=== PATIENT | female | born 1985 | race Asian ===

== ENCOUNTER 2023-09-05 07:54 | Inpatient (IN) ==
[2023-09-05] MEDS ORDERED: LIDOCAINE 1% LOCAL 20 ML VIAL INFIL PRN (10:27)
[2023-09-05] MEDS: SERTRALINE HCL 50 MG TABLET PO SCH (10:31)
--- NOTE | 2023-09-05 10:42 | History & Physical Report ---
Date of Service September 05, 2023 Assessment & Plan (1) Female infertility: Present on Admission?: No (2) Encounter for induction of labor: Present on Admission?: Yes (3) AMA (advanced maternal age) multigravida 35+: Present on Admission?: Yes Plan Admit to L and D Regular diet x 2 then NPO/IV Fluids labs Cytotec 25 mcg x 4 doses then consider Pitocin, AROM to augment labor pain meds including epidural eventually as the pt desires Admission and Anticipated Discharge Date Admission Date: September 05, 2023 History of Present Illness Chief Complaint: Induction of labor for IVF , AMA Primary Care Provider: Delia Dimas pt 40 yr old IUP at 39 weeks 2 days came in for IOL . IVF . Denies regular uterine contractions, vaginal bleeding, leaking of fluid per vagina etc, Reports good movement. Allergies Allergy/AdvReac Type Severity Reaction Status Date / Time amoxicillin [From Augmentin] Allergy Nausea Verified 09/05/23 08:39 clavulanic acid Allergy Nausea Verified 09/05/23 08:39 [From Augmentin] Home Medications Medication Instructions Recorded Confirmed Type Aspir-81 81 mg PO 1XD 09/05/23 09/05/23 History 1 tab PO 1XD 09/05/23 09/05/23 History Zoloft 75 mg PO 1XD 09/05/23 09/05/23 History Past Med/Surg History Problem List (Updated 09/05/23 @ 10:40 by Ashley Brown MD) AMA (advanced maternal age) multigravida 35+ Encounter for induction of labor Female infertility (Chronic) Depression (Chronic) Anxiety (Chronic) Surgical History History of adenoidectomy S/P lumpectomy of breast Benign Family History Denies family history of Ovarian cancer Breast cancer Colorectal cancer Social History Smoking Status: Never smoker Second Hand Exposure: No; Do You Dip or Chew Tobacco: No; Tobacco Cessation Education Requested by Patient: No Hx Alcohol Use: No Hx Substance Use: No Preferred Language: Maltese Museum Preparator Required: No Beliefs That Will Affect Care: None marital status: Current Living Situation: Spouse Current Living Situation Comment: [facility] Other Information That Helps Us Care for You: No Feels Safe at Home: Yes Safety Concerns: Feels Safe At This Time, Afraid for Self, Afraid for Child/Children and Afraid for Others in Home Assistive Devices: None Review of Systems Review of Systems: All systems reviewed & are unremarkable except as noted in HPI & below Constitutional: as per Subjective / HPI Ear, Nose, Mouth, Throat: as per Subjective / HPI Respiratory: as per Subjective / HPI Cardiovascular: as per Subjective / HPI Physical Exam Constitutional: WD/WN, vitals as above Eyes: PERRL, conjunctivae normal, anicteric sclerae Respiratory: normal respiratory effort, lungs clear to auscultation Cardiovascular: RRR, no murmur, no edema Gastrointestinal (Abdomen): normal bowel sounds, soft, nontender, no hepatosplenomegaly Skin: no rashes, warm and dry Genitourinary: no vaginal lesions, no adnexal mass Manual OB Exam: + cervical dilation (1 cm), + cervical effacement 80% and + station 0 OB Exam Monitor Tracing: + external FHT monitor used, + category I and + normal FHT variability Results & Data Results & Data Vital Signs (Past 12 Hours) Vital Signs Temp Pulse Resp BP 09/05/23 10:26 69 111/70 09/05/23 08:12 37.1 C 94 H 16 120/73 09/05/23 08:02 94 H 120/73 Medications Administered cytotec 25 mcg PO Code Status & VTE Plan VTE Prophylaxis Plan VTE Prophylaxis will be ordered: No
[2023-09-05] MEDS ORDERED: Nursing to Pharmacy Communication SCH (10:45)
[2023-09-05] MEDS: miSOPROStoL 25 MCG TAB PO SCH (11:06)
[2023-09-05 11:18] LABS: Hematocrit (blood only) 40.7 % (37.0-47.0); Hemoglobin 13.6 g/dl (12.0-16.0); Mean Corpuscular Hemoglobin 31.3 pg (25.0-34.0); Mean Corpuscular Hgb Conc 33.4 g/dL (32.0-36.0); Mean Corpuscular Volume 93.8 fL (80.0-100.0); Mean Platelet Volume 9.8 fL (9.4-12.4); Platelet Count 200 K/uL (130-400); RDW Coefficient of Variation 13.4 % (11.5-14.5); RDW Standard Deviation 45.9 fL (36.4-46.3); Red Blood Count 4.34 M/uL (4.20-5.40); White Blood Count 8.39 K/ul (4.8-10.8)
[2023-09-05 13:59] LABS: HIV 4th Gen(HIV 1,2 AB+p24 Ag Negative (Negative)
[2023-09-05 14:06] LABS: HepB Surface Ag with confirm Negative (Negative)
[2023-09-05 14:14] LABS: HepC Ab Rflx HepCQuant RNA Negative (Negative)
[2023-09-05] MEDS: LACTATED RINGER'S 1,000 ML IV PRN (15:02)
[2023-09-05] MEDS: BUPIVACAINE 0.25% PF 30 ML VIAL ONE (15:47)
[2023-09-05] MEDS: LIDOCAINE 2%/EPINEPHRINE 1:200,000 20 ML PF ONE (15:47)
[2023-09-05] MEDS: fentANYL 2 MCG/ML BUPIVacaine 0.125%-NSS 100ML BAG ONE (15:52)
[2023-09-05] MEDS: ePHEDrine sulfate 50 MG/ML AMP ONE (15:57)
[2023-09-05] MEDS: fentaNYL citrate PF 100 MCG/2 ML VIAL ONE (15:57)
[2023-09-05] MEDS: SODIUM CHLORIDE 0.9% PF INJ 10 ML VIAL ONE (15:58)
--- NOTE | 2023-09-05 16:04 | Anesthesiology Consultation ---
Date of Service September 05, 2023 Assessment & Plan Chart Review Chart Review: Acceptable Risk for Labor Epidural Consults Requested none History Height/Weight Height: 5 ft 6 in Weight: 82.1 kg Allergies Allergy/AdvReac Type Severity Reaction Status Date / Time amoxicillin [From Augmentin] Allergy Nausea Verified 09/05/23 08:39 clavulanic acid Allergy Nausea Verified 09/05/23 08:39 [From Augmentin] Medications Home Medications Medication Instructions Recorded Confirmed Last Taken Aspir-81 81 mg PO 1XD 09/05/23 09/05/23 09/05/23 0700 1 tab PO 1XD 09/05/23 09/05/23 09/05/23 0700 Zoloft 75 mg PO 1XD 09/05/23 09/05/23 09/05/23 0700 Active Medications Generic Name Dose Route Start Last Admin Trade Name Freq PRN Reason Stop Dose Admin Lactated Ringer's 1,000 mls @ 125 mls/hr 09/05/23 10:27 09/05/23 15:48 Lr IV 09/07/23 10:26 125 mls/hr .Q8H PRN Administration L&D Protocol Protocol Misoprostol 25 mcg 09/05/23 11:05 09/05/23 11:06 Misoprostol 25 Mcg Tab PO 10/05/23 11:04 25 mcg BID TAMMI Administration Sertraline HCl 75 mg 09/05/23 10:30 09/05/23 10:31 Sertraline Hcl 50 Mg Tablet PO 10/05/23 10:29 Not Given DAILY TAMMI Past Family History Family History Denies family history of Ovarian cancer Breast cancer Colorectal cancer Past Surgical History Surgical History History of adenoidectomy S/P lumpectomy of breast Benign Social History Smoking Status: Never smoker Do You Dip or Chew Tobacco: No Hx Alcohol Use: No Hx Substance Use: No substance use type: does not use Physical Exam Vital Signs Last Vital Signs Temp 36.7 C 09/05/23 16:00 Pulse 80 09/05/23 16:00 Resp 16 09/05/23 11:45 BP 121/69 09/05/23 16:00 Pulse Ox 100 09/05/23 16:00 Testing Laboratory Results 09/05/23 10:49 Blood Type Cancelled 09/05/23 10:49 Rho(D) Type Cancelled 09/05/23 10:49
[2023-09-05] MEDS ORDERED: SODIUM CHLORIDE 0.9% PF INJ 10 ML VIAL EPI PRN (16:05)
[2023-09-05] MEDS ORDERED: ePHEDrine sulfate 50 MG/ML AMP IV PRN (16:05)
[2023-09-05] MEDS ORDERED: BUPIVACAINE 0.25% PF 30 ML VIAL EPI PRN (16:05)
[2023-09-05] MEDS ORDERED: NALOXONE HCL 0.4 MG/1 ML VIAL/CARP IV PRN (16:05)
[2023-09-05] MEDS ORDERED: fentaNYL citrate PF 100 MCG/2 ML VIAL EPI PRN (16:05)
[2023-09-05] MEDS ORDERED: NALOXONE HCL 1 MG in SODIUM CHLORIDE 0.9% 1,000 ML IV PRN (16:05)
[2023-09-05] MEDS ORDERED: ROPIVACAINE 0.5% PF 5 MG/ML 20 ML VIAL EPI PRN (16:05)
[2023-09-05] MEDS ORDERED: LIDOCAINE 2% MPF LOCAL 5 ML VIAL EPI PRN (16:05)
[2023-09-05] MEDS ORDERED: NALBUPHINE HCL 5 MG in SYRINGE 0 ML IV PRN (16:05)
[2023-09-05] MEDS ORDERED: diphenhydrAMINE 50 MG/ML VIAL IV PRN (16:05)
[2023-09-05] MEDS: ONDANSETRON INJ 2 MG/ML 2 ML VIAL IV PRN (17:27)
[2023-09-05] MEDS: fentaNYL citrate PF 100 MCG/2 ML VIAL EPI STA (17:42)
[2023-09-05] MEDS: BUPIVACAINE 0.25% PF 30 ML VIAL EPI STA (17:42)
[2023-09-05] MEDS: SODIUM CHLORIDE 0.9% PF INJ 10 ML VIAL EPI STA (17:49)
[2023-09-05] MEDS: LIDOCAINE 2%/EPINEPHRINE 1:200,000 20 ML PF EPI STA (17:50)
[2023-09-05] MEDS: fentANYL 2 MCG/ML BUPIVacaine 0.125%-NSS 100ML BAG EPI PRN (21:00)
[2023-09-05] MEDS ORDERED: miSOPROStoL 25 MCG TAB PO SCH (21:00)
[2023-09-06] MEDS ORDERED: fentaNYL citrate PF 100 MCG/2 ML VIAL ONE (01:17)
--- NOTE | 2023-09-06 01:35 | Anesthesia Procedure Note ---
Date of Service September 06, 2023 Anesthesia Epidural Re-Dose Vital Signs Temp Pulse Resp BP Pulse Ox 36.8 C 111 H 18 110/65 100 09/05/23 23:18 09/06/23 01:33 09/05/23 23:18 09/06/23 01:33 09/06/23 01:30 Notes Pain Intensity: 2 Dilatation (cm): 10.0 Effacement (%): 100 Called by nursing to evaluate epidural as the patient is having increased pain. The epidural was re-dosed with the following medications (all medications via epidural route) after negative aspiration of the epidural catheter for CSF/HEME. 2% lidocaine 5ml with fentanyl 100mcg. After Epidural Re-Dose Mental Status: alert / awake / arousable Pain: improving with treatment Airway Patency, RR, SpO2: stable & adequate BP & HR: stable & adequate
[2023-09-06] MEDS: OXYTOCIN 30 UNITS/NSS 30 UNITS/500 ML BAG IV SCH (03:02)
[2023-09-06] MEDS: ceFAZolin 2000MG 2,000 MG/15 ML SYR IV STA (04:26)
[2023-09-06] MEDS: AZITHROMYCIN 500 MG in DEXTROSE 5% 250 ML IV STA (04:28)
[2023-09-06] MEDS ORDERED: MoRPHine SULFATE PF 1 MG/ML 10 ML AMP/VIAL ONE (04:32)
[2023-09-06] MEDS ORDERED: LIDOCAINE 2%/EPINEPHRINE 1:200,000 20 ML PF ONE (04:32)
--- NOTE | 2023-09-06 04:34 | History & Physical Bridge Note ---
Date of Service September 06, 2023 History & Physical Bridge Note I have examined the patient, reviewed the History & Physical and in the interval since the performance of the History & Physical I have noted the following changes of clinical significance: no changes noted FHR: 14-S. DOWN TO 70 TO 90S for few minutes, recovered TOO; Q 3 to 5 min SVE: fully/-2. Caput noted, failure to descent after more than 2 to 3 hrs labor down of the pt/ Because of the failure to progress /descent and beatriz cardia, decision made to proceed with primary section. Discussed risks and benefits of the procedure. Pt and her family verbalized understanding, all their questions answered. Consent obtained. OR and Anesthesia informed. Ancef 2 gm, Zithromax 500 mg IV ordered
[2023-09-06] MEDS ORDERED: OXYTOCIN 10 UNITS/ML VIAL ONE (05:21)
[2023-09-06] MEDS ORDERED: METHYLERGONOVINE MALEATE 0.2 MG/ML AMP ONE (05:23)
[2023-09-06] MEDS ORDERED: PHENYLEPHRINE 100MCG/ML 10ML SYR IV ONE (05:24)
--- NOTE | 2023-09-06 05:46 | Operative Report ---
Post Operative Report Pre & Post Diagnosis Operation Date: 09/06/23 04:25 Pre-Op Diagnosis: 1. Term 2. intolerance to pushing Post-Op Diagnosis: Same I identified the patient and participated in the time-out.: Yes Procedure primary low transverse section. Operation Date: 09/06/23 04:25 Actual Procedures p Section in LD with the of a live female child at 0459 - Ashley Brown MD Procedure Summary: section was recommended. Risks, benefits and alternatives were discussed including but not limited to infection, bleeding that may require blood products or hysterectomy for life saving measures, injury to surrounding organs including but not limited to bowel, bladder, ureters, tubes and ovaries and/or the baby. Should injury occur it could require longer/additional surgery to repair. Patient was also counselled about risk of DVT/PE, and injury to during delivery. The patient stated understanding and desired to proceed. All questions were answered posed by patient. Prior to being taken to the OR, 2 grams of cefazolin IV and 500 mg of azithromycin was administered. The patient was taken to the operating room where regional anesthesia was found to be adequate. Prior to monitors being removed FHR was 120s. She was then prepared and draped in the usual sterile fashion in the dorsal supine position with a leftward tilt displacing the uterus. Harris was draining to gravity. SCDs were on bilateral lower extremities. A Pfannenstiel skin incision was then made with the scalpel and carried through to the underlying layer of fascia. The fascia was incised in the midline and the incision extended laterally with the Epstein scissors. The superior aspect of the facial incision was then grasped with the Pato clamps, elevated and the underlying rectus muscles dissected off bluntly. Attention was then turned to the inferior aspect of this incision which in a similar fashion was grasped, elevated with the Pato clamps and the rectus muscle dissected off bluntly. The rectus muscles were in the midline. The peritoneum identified, grasped with the pick-ups and entered sharply with the Metzenbaum scissors. The peritoneal incision was then extended superiorly and inferiorly with good visualization of the bladder. The bladder blade was inserted and the vesicout erine peritoneum was identified, grasped with the pick-ups, and entered sharply with Metzenbaum scissors. This incision was then extended laterally and the bladder flap created digitally and the bladder blade was reinserted. The lower uterine segment was identified and incised in a transverse fashion with the scalpel. The uterine incision was then extended bluntly laterally. The bladder blade was removed. The fetus was in cephalic presentation. Noted a severely impacted head at this time. The was delivered with little difficulty but uneventful. The umbilical cord was clamped times two and cut. The infant was handed off to the awaiting pediatric staff. A female was delivered weight pending with APGARS of 7 at 1 minute and 9 at 5 minutes. The infant was attended do by pediatric and nursing staff in the room. Cord blood was obtained. The placenta was removed with gentle traction. 30 units of oxytocin were added to IVF and allowed to run freely. The uterus was ext eriorized and cleared of all clots and debris. The uterine incision was inspected and found to be without any extensions and was repaired with 0 Vicryl in a running, locked fashion. still the uterus being slightly atonic, 0.2 mg IM Methergine given. The uterus was replaced and 3 gm of Arsita powder sprayed was placed across the incision to assure hemostasis. The operating team changed their top pair of gloves at this point. 0 Vicryl suture was used to close it in a running fashion. The transverse portion of the fascia was closed in a running fashion in 1 segment. The subcutaneous layer was reapproximated with 2-0 Vicryl in a running fashion. The uterus was expressed clots and lochia was noted to have excellent tone. skin closed with 3.0 Vicryl on Jesus needle. Dermabond applied. pressure dressing used. Sponge, needle and instrument count correct x 3. The patient tolerated the procedure well and was sent to recovery in stable condition. Surgeon Ashley Brown MD Power Plant Electrician surgical processor available for retraction. Quantitative Blood Loss (QBL) 1000 ml Findings Consistent with Post-Op Diagnosis Specimens none Anesthesia Type Labor Epidural Complications none Disposition Accompanied Patient To Recovery: No Disposition: L&D Description of Procedure see above I performed the section. pt tolerated well.
[2023-09-06] MEDS: ARISTA ABSORBABLE HEMOSTAT 3GM TOP ONE (05:56)
[2023-09-06] MEDS ORDERED: diphenhydrAMINE 50 MG/ML VIAL IV PRN ×2 (05:59→07:06)
[2023-09-06] MEDS ORDERED: HYDROCORTISONE ACETATE 25 MG SUPP PR PRN (05:59)
[2023-09-06] MEDS ORDERED: BENZOCAINE 20% SPRY 85 APPLN/85 GM CAN EXT PRN (05:59)
[2023-09-06] MEDS ORDERED: ONDANSETRON INJ 2 MG/ML 2 ML VIAL IV PRN (05:59)
[2023-09-06] MEDS ORDERED: PROMETHAZINE HCL 25 MG in SODIUM CHLORIDE 0.9% 50 ML IV PRN (05:59)
[2023-09-06] MEDS ORDERED: diphenhydrAMINE Capsule 25 MG CAP PO PRN (05:59)
[2023-09-06] MEDS ORDERED: SENNA 8.6 MG TAB PO PRN (05:59)
[2023-09-06] MEDS ORDERED: MAGNESIUM HYDROXIDE SUSP 30 ML UDC PO PRN (05:59)
--- NOTE | 2023-09-06 05:59 | Post Operative Brief Note ---
Immediate Post Op Note Date of Surgery September 06, 2023 Pre & Post Diagnosis Operation Date: 09/06/23 04:25 Pre-Op Diagnosis: 1. Term 2. intolerance to pushing 3. failure to progress/descent Post-Op Diagnosis: Same I identified the patient and participated in the time-out.: Yes Procedure Operation Date: 09/06/23 04:25 Actual Procedures p Section in LD with the of a live female child at 0459 - Ashley Brown MD Surgeon Ashley Brown MD Advisory Services Associate surgical assistant available for retraction. Quantitative Blood Loss (QBL) 1000 ml Findings Consistent with Post-Op Diagnosis live viable female Fluids 1000 cc Specimens Specimen Description: A: Placenta-hold B: Cord Blood Drains Harris Catheter (Harris intact upon arrival into OR; concentrated yellow urine noted. ) Anesthesia Type Labor Epidural Disposition Accompanied Patient To Recovery: No Disposition: L&D Overlapping Procedure I was immediately available: during the entire case. Back up surgeon: was not required during procedure.
--- NOTE | 2023-09-06 06:01 | Anesthesia Procedure Note ---
Date of Service September 06, 2023 Anesthesia Post Epidural Note Vital Signs Vital Signs: Temp Pulse Resp BP Pulse Ox 37.2 C 102 H 18 116/57 L 100 09/06/23 03:07 09/06/23 06:00 09/06/23 03:07 09/06/23 05:52 09/06/23 06:00 Pain Intensity Lower Back: Pain Intensity: 5 Notes Mental Status: alert / awake / arousable Nausea / Vomiting: adequately controlled Pain: adequately controlled Airway Patency, RR, SpO2: stable & adequate BP & HR: stable & adequate Hydration State: stable & adequate Neuraxial Anesthesia: was administered and sensory block is resolving Anesthetic Complications: no major complications apparent and Pt Satisfied with anesthetic care Epidural: Removed without complications and With tip intact
--- NOTE | 2023-09-06 06:14 | Anesthesiology Progress Note ---
Date of Service September 06, 2023 Anesthesia Post Procedure Vital Signs Vital Signs: Temp Pulse Resp BP Pulse Ox 09/06/23 06:12 96 H 101/54 L 09/06/23 06:10 100 H 98 09/06/23 06:05 101 H 98 09/06/23 06:02 101 H 108/56 L 09/06/23 06:00 102 H 100 09/06/23 05:55 100 H 99 09/06/23 05:52 102 H 116/57 L 09/06/23 05:50 96 H 100 09/06/23 05:45 96 H 100 09/06/23 05:44 96 H 105/55 L 09/06/23 04:30 124 H 100 09/06/23 04:25 128 H 100 09/06/23 04:20 148 H 100 09/06/23 04:19 114 H 87 L 09/06/23 04:15 125 H 100 09/06/23 04:10 113 H 100 09/06/23 04:05 143 H 100 09/06/23 04:02 90 127/58 L 09/06/23 04:00 90 100 09/06/23 03:55 92 H 100 09/06/23 03:50 106 H 100 09/06/23 03:46 87 116/59 L 09/06/23 03:45 90 100 09/06/23 03:40 90 100 09/06/23 03:35 90 100 09/06/23 03:33 88 117/59 L 09/06/23 03:30 90 100 09/06/23 03:25 88 100 09/06/23 03:20 88 100 09/06/23 03:16 90 125/60 09/06/23 03:15 90 99 09/06/23 03:10 90 99 09/06/23 03:07 18 09/06/23 03:07 37.2 C 18 09/06/23 03:05 96 H 98 09/06/23 03:04 100 H 94 09/06/23 03:03 120 H 126/73 09/06/23 03:00 101 H 98 09/06/23 02:55 102 H 97 09/06/23 02:50 93 H 97 09/06/23 02:47 106 H 137/65 09/06/23 02:45 102 H 97 09/06/23 02:40 109 H 97 09/06/23 02:35 92 H 97 09/06/23 02:33 90 173/76 H 09/06/23 02:30 105 H 97 09/06/23 02:25 87 96 09/06/23 02:20 85 97 09/06/23 02:16 90 135/66 09/06/23 02:15 90 96 09/06/23 02:10 88 96 09/06/23 02:05 96 H 96 09/06/23 02:02 90 142/67 H 09/06/23 02:00 90 97 09/06/23 01:55 100 H 97 09/06/23 01:50 117 H 97 09/06/23 01:45 97 09/06/23 01:45 124 H 09/06/23 01:45 113 H 108/59 L 09/06/23 01:43 123 H 102/58 L 09/06/23 01:41 112 H 110/66 09/06/23 01:40 116 H 97 09/06/23 01:39 104 H 114/67 09/06/23 01:37 117 H 109/66 09/06/23 01:35 111 H 112/65 98 09/06/23 01:33 111 H 110/65 09/06/23 01:31 37.3 C 116 H 18 108/59 L 09/06/23 01:30 116 H 100 09/06/23 01:29 122 H 122/60 09/06/23 01:27 115 H 125/59 L 09/06/23 01:25 127 H 100 09/06/23 01:22 127 H 116/60 09/06/23 01:20 115 H 125/64 100 09/06/23 01:15 132 H 100 09/06/23 01:10 125 H 100 09/06/23 01:05 115 H 100 09/06/23 01:00 110 H 100 09/06/23 00:55 112 H 100 09/06/23 00:50 118 H 100 09/06/23 00:45 122 H 100 09/06/23 00:40 129 H 100 09/06/23 00:35 144 H 100 09/06/23 00:31 129 H 121/61 09/06/23 00:30 131 H 100 09/06/23 00:27 134 H 117/72 06/25/24 00:25 136 H 99 09/06/23 00:20 156 H 100 09/06/23 00:15 133 H 100 09/06/23 00:10 117 H 100 09/06/23 00:05 135 H 97 09/06/23 00:04 130 H 92 09/06/23 00:00 147 H 100 09/05/23 23:58 136 H 93 09/05/23 23:55 128 H 99 09/05/23 23:50 136 H 100 09/05/23 23:46 114 H 121/58 L 09/05/23 23:45 107 H 100 09/05/23 23:43 111 H 93 09/05/23 23:39 121 H 91 09/05/23 23:37 106 H 91 09/05/23 23:34 121 H 84 L 09/05/23 23:27 121 H 90 09/05/23 23:21 180 H 82 L 09/05/23 23:18 18 09/05/23 23:18 36.8 C 18 09/05/23 23:17 108 H 94 09/05/23 23:16 125 H 96 09/05/23 23:11 86 L 09/05/23 23:11 120 H 09/05/23 23:11 122 H 94 09/05/23 23:06 103 H 85 L 09/05/23 23:05 111 H 93 09/05/23 23:01 103 H 98 09/05/23 22:59 100 H 91 09/05/23 22:56 96 H 81 L 09/05/23 22:54 96 H 09/05/23 22:54 95 H 130/71 90 09/05/23 22:50 87 98 09/05/23 22:47 93 H 94 09/05/23 22:45 85 128/61 98 09/05/23 22:40 86 100 09/05/23 22:35 90 100 09/05/23 22:31 86 09/05/23 22:31 84 124/60 92 09/05/23 22:30 87 100 09/05/23 22:25 87 100 09/05/23 22:20 88 100 09/05/23 22:15 88 114/67 97 09/05/23 22:10 80 100 09/05/23 22:05 81 100 09/05/23 22:01 79 116/66 09/05/23 22:00 79 99 09/05/23 21:59 18 09/05/23 21:59 18 09/05/23 21:56 86 92 09/05/23 21:55 86 98 09/05/23 21:50 103 H 91 09/05/23 21:48 96 H 90 09/05/23 21:46 86 131/75 09/05/23 21:45 81 100 09/05/23 21:42 88 92 09/05/23 21:40 94 H 99 09/05/23 21:35 88 100 09/05/23 21:30 98 09/05/23 21:30 88 09/05/23 21:30 85 112/56 L 88 L 09/05/23 21:25 79 99 09/05/23 21:20 84 99 09/05/23 21:15 83 121/65 99 09/05/23 21:10 92 H 98 09/05/23 21:05 93 H 100 09/05/23 21:01 88 112/72 89 L 09/05/23 21:00 37.0 C 87 18 100 09/05/23 20:55 80 96 09/05/23 20:54 93 H 92 09/05/23 20:50 85 99 09/05/23 20:45 87 116/66 100 09/05/23 20:40 87 100 09/05/23 20:36 80 90 09/05/23 20:35 80 99 09/05/23 20:31 80 117/64 09/05/23 20:30 81 99 09/05/23 20:25 82 99 09/05/23 20:20 92 H 100 09/05/23 20:18 88 88 L 09/05/23 20:16 78 114/62 09/05/23 20:15 89 100 09/05/23 20:10 77 100 09/05/23 20:05 77 100 09/05/23 20:01 76 115/59 L 09/05/23 20:00 78 100 09/05/23 19:55 75 100 09/05/23 19:50 73 100 09/05/23 19:45 80 18 116/61 95 09/05/23 19:42 88 94 09/05/23 19:40 89 98 09/05/23 19:35 77 100 09/05/23 19:31 86 124/80 92 09/05/23 19:30 85 100 09/05/23 19:25 88 100 09/05/23 19:24 97 H 90 09/05/23 19:20 88 98 09/05/23 19:17 93 09/05/23 19:17 85 09/05/23 19:17 74 116/72 09/05/23 19:15 36.7 C 18 09/05/23 19:15 80 100 09/05/23 19:10 75 100 09/05/23 19:08 83 94 09/05/23 19:05 80 100 09/05/23 19:00 95 H 88 L 09/05/23 18:59 89 90 09/05/23 18:55 72 100 09/05/23 18:51 77 91 09/05/23 18:50 77 99 09/05/23 18:45 75 117/70 99 09/05/23 18:40 71 99 09/05/23 18:37 85 93 09/05/23 18:35 90 100 09/05/23 18:31 72 122/70 09/05/23 18:30 75 100 09/05/23 18:27 88 92 09/05/23 18:25 72 100 09/05/23 18:20 80 100 09/05/23 18:16 79 118/70 09/05/23 18:15 84 100 09/05/23 18:10 81 100 09/05/23 18:09 83 92 09/05/23 18:05 72 100 09/05/23 18:02 75 91 09/05/23 18:00 36.5 C 78 16 111/63 97 09/05/23 17:55 83 92 09/05/23 17:50 77 100 09/05/23 17:45 82 112/63 99 09/05/23 17:40 75 100 09/05/23 17:35 74 100 09/05/23 17:34 77 92 09/05/23 17:30 76 16 110/59 L 100 09/05/23 17:25 89 100 09/05/23 17:20 74 100 09/05/23 17:16 90 110/57 L 09/05/23 17:15 89 91 09/05/23 17:10 76 99 09/05/23 17:08 86 113/68 09/05/23 17:05 88 99 09/05/23 17:00 75 16 100 09/05/23 16:55 75 100 09/05/23 16:50 78 99 09/05/23 16:45 91 H 18 100 09/05/23 16:40 71 118/65 100 09/05/23 16:37 72 124/70 09/05/23 16:35 71 100 09/05/23 16:30 72 16 120/67 100 09/05/23 16:26 82 127/71 09/05/23 16:25 73 99 09/05/23 16:22 72 110/71 09/05/23 16:20 70 99 09/05/23 16:17 73 116/63 09/05/23 16:15 72 100 09/05/23 16:10 76 120/69 100 09/05/23 16:08 73 121/67 09/05/23 16:05 92 H 120/70 98 09/05/23 16:03 81 117/68 09/05/23 16:00 16 09/05/23 16:00 16 09/05/23 16:00 36.7 C 09/05/23 16:00 100 09/05/23 16:00 80 09/05/23 16:00 81 121/69 09/05/23 15:57 69 116/62 09/05/23 15:56 79 93 09/05/23 15:55 79 100 09/05/23 15:53 82 116/69 09/05/23 15:50 70 118/72 99 09/05/23 15:47 76 119/71 09/05/23 15:46 16 09/05/23 15:46 16 09/05/23 15:45 71 99 09/05/23 15:44 67 111/62 09/05/23 15:42 71 110/55 L 09/05/23 15:40 77 99 09/05/23 15:39 73 163/60 H 09/05/23 15:36 93 H 119/74 09/05/23 15:35 81 98 09/05/23 15:30 100 09/05/23 15:30 87 09/05/23 15:30 93 H 119/76 09/05/23 15:00 36.6 C 09/05/23 14:15 73 123/82 09/05/23 11:49 89 117/72 09/05/23 11:45 37.1 C 16 09/05/23 11:07 82 118/72 09/05/23 10:26 69 111/70 09/05/23 08:12 37.1 C 94 H 16 120/73 09/05/23 08:02 94 H 120/73 Pain Intensity Lower Back: Pain Intensity: 5 Transfer of Care Handoff Completed per policy Notes Mental Status: alert / awake / arousable and participated in evaluation Nausea / Vomiting: adequately controlled Pain: adequately controlled Airway Patency, RR, SpO2: stable & adequate BP & HR: stable & adequate Hydration State: stable & adequate Neuraxial Anesthesia: was administered and sensory block is resolving Anesthetic Complications: no major complications apparent and Pt Satisfied with anesthetic care
[2023-09-06] MEDS ORDERED: NALBUPHINE HCL 5 MG in SYRINGE 0 ML IV PRN (07:06)
[2023-09-06] MEDS ORDERED: NALOXONE HCL 0.4 MG/1 ML VIAL/CARP IV PRN (07:06)
[2023-09-06] MEDS ORDERED: NALOXONE HCL 0.08 MG in SYRINGE 1.8 ML IV PRN (07:06)
[2023-09-06] MEDS ORDERED: ePHEDrine sulfate 50 MG/ML AMP IV PRN (07:06)
[2023-09-06] MEDS ORDERED: MoRPHine SULFATE 2 MG/ML CARP IV PRN (07:06)
[2023-09-06] MEDS ORDERED: LACTATED RINGER'S 500 ML IV PRN (07:06)
[2023-09-06] MEDS ORDERED: PROMETHAZINE HCL 6.25 MG in SODIUM CHLORIDE 0.9% 50 ML IV PRN (07:06)
[2023-09-06] MEDS ORDERED: NALOXONE HCL 1 MG in SODIUM CHLORIDE 0.9% 1,000 ML IV PRN (07:06)
[2023-09-06] MEDS ORDERED: DC INTRASPINAL MORPHINE SCH (07:15)
[2023-09-06] MEDS ORDERED: NO NARCOTICS OR SEDATIVES SCH (07:15)
[2023-09-06] MEDS: KETOROLAC 30 MG/ML VIAL IV PRN (07:25)
[2023-09-06] MEDS: NURSING L&D Epidural Breakthrough Pain Update ONE (07:32)
[2023-09-06] MEDS: OXYTOCIN 30 UNITS/500ML NSS IV ONE (07:32)
[2023-09-06] MEDS: SODIUM CHLORIDE 0.9% 1,000 ML IV SCH (07:33)
[2023-09-06] MEDS: MoRPHine SULFATE PF 1 MG/ML 10 ML AMP/VIAL EPI ONE (07:33)
[2023-09-06] MEDS: LACTATED RINGER'S 1,000 ML IV SCH (08:09)
[2023-09-06] MEDS: DIPHTHER/TETAN/PERTUS Vaccine (Tdap, Adol/Adult) 0.5mL IM ONE (08:45)
[2023-09-06] MEDS: ONDANSETRON INJ 2 MG/ML 2 ML VIAL IV PRN (09:05)
[2023-09-06] MEDS: DOCUSATE SODIUM 100 MG CAP PO SCH (11:39)
[2023-09-06] MEDS: FERROUS SULFATE 325 MG TAB PO SCH (11:40)
[2023-09-06] MEDS: PRENATAL VITAMIN 1 TAB PO SCH (11:41)
[2023-09-06] MEDS: SIMETHICONE 80 MG CHEW PO SCH (11:43)
[2023-09-06] MEDS: OXYTOCIN 20 UNITS/LR 1,002 ML IV SCH (13:23)
[2023-09-07] MEDS ORDERED: PROMETHAZINE HCL 25 MG in SODIUM CHLORIDE 0.9% 50 ML IV PRN (01:10)
[2023-09-07] MEDS ORDERED: diphenhydrAMINE 50 MG/ML VIAL IV PRN (01:10)
[2023-09-07] MEDS ORDERED: diphenhydrAMINE Capsule 25 MG CAP PO PRN (01:10)
[2023-09-07] MEDS ORDERED: ONDANSETRON INJ 2 MG/ML 2 ML VIAL IV PRN (01:10)
[2023-09-07] MEDS: oxyCODONE/ACETAMINOPHEN 5mg/325mg TAB PO PRN (01:12)
[2023-09-07 06:57] LABS: Basophils # (auto) 0.03 K/uL (0.00-0.20); Basophils % (auto) 0.2 %; Eosinophils # (auto) 0.01 K/uL (0.00-0.50); Eosinophils % (auto) 0.1 %; Hematocrit (blood only) 30.6 % (37.0-47.0); Hemoglobin 10.3 g/dl (12.0-16.0); Immature Granulocytes # (auto) 0.15 K/uL (0.01-0.20); Lymphocytes # (auto) 0.53 K/uL (1.20-3.40); Lymphocytes % (auto) 3.5 %; Mean Corpuscular Hemoglobin 31.5 pg (25.0-34.0); Mean Corpuscular Hgb Conc 33.7 g/dL (32.0-36.0); Mean Corpuscular Volume 93.6 fL (80.0-100.0); Mean Platelet Volume 9.5 fL (9.4-12.4); Monocytes # (auto) 0.73 K/uL (0.11-0.59); Monocytes % (auto) 4.9 %; Neutrophils % (auto) 90.3 %; Platelet Count 180 K/uL (130-400); Polychromasia 1+; RDW Coefficient of Variation 13.5 % (11.5-14.5); RDW Standard Deviation 46.8 fL (36.4-46.3); Red Blood Count 3.27 M/uL (4.20-5.40); White Blood Count 15.05 K/ul (4.8-10.8)
--- NOTE | 2023-09-07 09:24 | Obstetrical Progress Note ---
Date of Service September 07, 2023 Assessment & Plan Admission and Anticipated Discharge Date Admission Date: September 05, 2023 Subjective Patient is seen and examined. She feels well, no complaints. Pain is under control with oral meds. Ambulating without dizziness Voiding without difficulty Tolerating regular diet with out N&V Flatus + Bleeding is minimal No fever/ chills/ CP/ SOB/ N&V/ Leg pain Breast and bottle feeding without problems Vital Signs Temp Pulse Pulse Resp BP BP Pulse Ox 09/07/23 08:32 36.6 C 98 H 16 97 09/07/23 08:32 36.6 C 98 H 16 103/65 09/07/23 04:00 36.9 C 99 H 16 103/68 97 09/07/23 01:00 16 100 09/07/23 00:15 37.2 C 110 H 16 105/70 100 09/07/23 00:15 16 100 09/06/23 23:00 16 100 09/06/23 22:18 16 100 09/06/23 21:45 16 99 O2 Del Method 09/07/23 08:32 Room Air 09/07/23 08:32 09/07/23 04:00 Room Air 09/07/23 01:00 09/07/23 00:15 Room Air 09/07/23 00:15 09/06/23 23:00 09/06/23 22:18 09/06/23 21:45 Lab Results 09/05/23 09/07/23 Range/Units 10:49 06:06 WBC 8.39 15.05 H (4.8-10.8) K/ul RBC 4.34 3.27 L (4.20-5.40) M/uL Hgb 13.6 10.3 L D (12.0-16.0) g/dl Hct 40.7 30.6 L (37.0-47.0) % MCV 93.8 93.6 (80.0-100.0) fL MCH 31.3 31.5 (25.0-34.0) pg MCHC 33.4 33.7 (32.0-36.0) g/dL RDW Std Deviation 45.9 46.8 H (36.4-46.3) fL RDW Coeff of Mart 13.4 13.5 (11.5-14.5) % Plt Count 200 180 (130-400) K/uL MPV 9.8 9.5 (9.4-12.4) fL Immature Gran % (Auto) 1.0 % Neut % (Auto) 90.3 % Lymph % (Auto) 3.5 % Milam % (Auto) 4.9 % Eos % (Auto) 0.1 % Baso % (Auto) 0.2 % Neut # (Auto) 13.60 H (1.40-6.50) K/uL Lymph # (Auto) 0.53 L (1.20-3.40) K/uL Milam # (Auto) 0.73 H (0.11-0.59) K/uL Eos # (Auto) 0.01 (0.00-0.50) K/uL Baso # (Auto) 0.03 (0.00-0.20) K/uL Immature Gran # (Auto) 0.15 (0.01-0.20) K/uL Polychromasia 1+ RPR Nonreactive (Nonreactive) Hep Bs Antigen Negative (Negative) Hepatitis C Antibody Negative (Negative) HIV 1&2 Ab/P24 Ag 4thGn Negative (Negative) Blood Type Cancelled A Negative Rho(D) Type Cancelled Antibody Screen NEGATIVE Screen Negative (Negative) PE: General: Alert, orientedx3, NAD CVS: S1S2 RRR Lungs; CTAB Abd: soft, NT, ND, BS+, fundus firm, below Umbilicus Incision: Clean, dry, intact Perineum intact, Lochia rubra minimal Ext; NT, no edema AP: 38 yo s/p C Section, pod# 1 VSS Afebrile doing well Continue routine postop care Encourage ambulation, PO intake All questions were answered D/C home tomorrow Results & Data Vital Signs (Past 12 Hours) Vital Signs Temp Pulse Pulse Resp BP BP Pulse Ox 09/07/23 08:32 36.6 C 98 H 16 97 09/07/23 08:32 36.6 C 98 H 16 103/65 09/07/23 04:00 36.9 C 99 H 16 103/68 97 09/07/23 01:00 16 100 09/07/23 00:15 37.2 C 110 H 16 105/70 100 09/07/23 00:15 16 100 06/25/24 23:00 16 100 09/06/23 22:18 16 100 09/06/23 21:45 16 99 O2 Del Method 09/07/23 08:32 Room Air 09/07/23 08:32 09/07/23 04:00 Room Air 09/07/23 01:00 09/07/23 00:15 Room Air 09/07/23 00:15 09/06/23 23:00 09/06/23 22:18 09/06/23 21:45
[2023-09-07] MEDS: IBUPROFEN 600 MG TAB PO PRN (09:58)
[2023-09-07] MEDS: bisacodyL 5 MG TABEC PO SCH (20:35)
[2023-09-08] MEDS ORDERED: bisacodyL 10 MG SUPP PR PRN (06:00)
[2023-09-08 06:39] LABS: Hematocrit (blood only) 28.2 % (37.0-47.0); Hemoglobin 9.2 g/dl (12.0-16.0)
--- NOTE | 2023-09-08 08:40 | Obstetrical Progress Note ---
Date of Service September 08, 2023 Assessment & Plan Admission and Anticipated Discharge Date Admission Date: September 05, 2023 OB Progress Note abdomen soft and non tender incision is clean and dry bowel sounds present no calf tenderness ambulating well vaginal bleeding scant hgb 9.2 Results & Data Vital Signs (Past 12 Hours) Vital Signs Temp Pulse Resp BP BP Pulse Ox O2 Del Method 09/08/23 08:32 36.5 C 90 14 126/78 99 Room Air 09/07/23 23:45 36.5 C 96 H 16 106/75 Room Air
--- NOTE | 2023-09-09 10:08 | Obstetrical Progress Note ---
Date of Service September 09, 2023 Assessment & Plan Admission and Anticipated Discharge Date Admission Date: September 05, 2023 Subjective Patient is seen and examined. She feels well, no complaints. Pain is under control with oral meds. Ambulating without dizziness Voiding without difficulty Tolerating regular diet with out N&V Flatus + Bleeding is minimal No fever/ chills/ CP/ SOB/ N&V/ Leg pain Breast and bottle feeding without problems Vital Signs Temp Pulse Resp BP O2 Del Method 09/09/23 08:05 36.8 C 101 H 18 121/78 Room Air 09/08/23 23:46 36.7 C 101 H 16 113/69 Room Air Lab Results 09/05/23 09/07/23 09/08/23 Range/Units 10:49 06:06 05:53 WBC 8.39 15.05 H (4.8-10.8) K/ul RBC 4.34 3.27 L (4.20-5.40) M/uL Hgb 13.6 10.3 L D 9.2 L (12.0-16.0) g/dl Hct 40.7 30.6 L 28.2 L (37.0-47.0) % MCV 93.8 93.6 (80.0-100.0) fL MCH 31.3 31.5 (25.0-34.0) pg MCHC 33.4 33.7 (32.0-36.0) g/dL RDW Std Deviation 45.9 46.8 H (36.4-46.3) fL RDW Coeff of Mart 13.4 13.5 (11.5-14.5) % Plt Count 200 180 (130-400) K/uL MPV 9.8 9.5 (9.4-12.4) fL Immature Gran % (Auto) 1.0 % Neut % (Auto) 90.3 % Lymph % (Auto) 3.5 % [place] % (Auto) 4.9 % Eos % (Auto) 0.1 % Baso % (Auto) 0.2 % Neut # (Auto) 13.60 H (1.40-6.50) K/uL Lymph # (Auto) 0.53 L (1.20-3.40) K/uL [place] # (Auto) 0.73 H (0.11-0.59) K/uL Eos # (Auto) 0.01 (0.00-0.50) K/uL Baso # (Auto) 0.03 (0.00-0.20) K/uL Immature Gran # (Auto) 0.15 (0.01-0.20) K/uL Polychromasia 1+ RPR Nonreactive (Nonreactive) Hep Bs Antigen Negative (Negative) Hepatitis C Antibody Negative (Negative) HIV 1&2 Ab/P24 Ag 4thGn Negative (Negative) Blood Type Cancelled A Negative Rho(D) Type Cancelled Antibody Screen NEGATIVE Screen Negative (Negative) PE: General: Alert, orientedx3, NAD CVS: S1S2 RRR Lungs; CTAB Abd: soft, NT, ND, BS+, fundus firm, below Umbilicus Incision: Clean, dry, intact Perineum intact, Lochia rubra minimal Ext; NT, no edema AP: 38 yo s/p C Section, pod# 3 VSS Afebrile doing well Continue routine postop care Encourage ambulation, PO intake All questions were answered D/C home , f/u in office Results & Data Vital Signs (Past 12 Hours) Vital Signs Temp Pulse Resp BP O2 Del Method 09/09/23 08:05 36.8 C 101 H 18 121/78 Room Air 09/08/23 23:46 36.7 C 101 H 16 113/69 Room Air
== END 2023-09-09 11:45 | disposition home health service (06) | DRG 788 ==
LOC: 4S1 07:54 → 4E2 09-06 09:11